=== PATIENT | female | born 1950 | race Caucasian/White ===

== ENCOUNTER 2016-09-12 10:24 | Emergency (ER) | payer OTHER ==
[2016-09-12 10:32] VITALS: BP 169/76; PULSE 111; RESP 18; TEMP 98.8; O2SAT 98
--- NOTE | 2016-09-12 10:44 | PD ---
HPI Chief Complaint: Skin Problem Time Seen by Provider: 10:32 Travel History International Travel<30 days: No Contact w/Intl Traveler<30days: No Traveled to known affect area: No History of Present Illness HPI SEEN AT URGENT CARE SEVERAL DAYS AGO DX WITH CELLULITIS TO RLE, PLACED ON BACTRIM AND PREDNISONE BUT STATES THAT HER PAIN IS STILL ONGOING SO IS HERE FOR FOLLOW UP....PAIN IS CRAMPY, 4/10, WORSE WITH AMBULATION, IMPROVED WITH REST. PFSH Past Medical History Cancer: Yes (BASAL CELL CANCER REMOVED ON LEG) Diminished Hearing: No Social History Alcohol Use: No Tobacco Use: No Substance Use: No Allergies-Medications (Allergen,Severity, Reaction): Coded Allergies: UNOBTAINABLE (Unverified , 09/12/16) Reported Meds & Prescriptions Reported Meds & Active Scripts Active Reported Gentamicin Opth Drops 0.3% Soln 1 Drop EACH EYE Q4HR Artificial Tears (Dextran 70/Hypromellose) 1 Each Droperette 1 Drop EACH EYE BID PRN Alendronate (Alendronate Sodium) 70 Mg Tab 70 Mg PO Q7D Bactrim DS (Sulfamethoxazole-Trimethoprim) 800-160 Mg Tab 1 Tab PO BID Simvastatin 20 Mg Tab 20 Mg PO DAILY Prednisone 50 Mg Tab 50 Mg PO DAILY Review of Systems Except as stated in HPI: all other systems reviewed are Neg Musculoskeletal: Positive: Pain (RLE) Physical Exam Narrative GENERAL: SKIN: Warm and dry. HEAD: Atraumatic. Normocephalic. EYES: Pupils equal and round. No scleral icterus. No injection or drainage. ENT: No nasal bleeding or discharge. Mucous membranes pink and moist. NECK: Trachea midline. No JVD. CARDIOVASCULAR: Regular rate and rhythm. RESPIRATORY: No accessory muscle use. Clear to auscultation. Breath sounds equal bilaterally. GASTROINTESTINAL: Abdomen soft, non-tender, nondistended. Hepatic and splenic margins not palpable. MUSCULOSKELETAL: Extremities without clubbing, cyanosis, or edema. No obvious deformities. RT CALF PAIN (POS CARINE'S ON RT CALF), NO EDEMA, NO ERYTHEMA NOTED EITHER LE NEUROLOGICAL: Awake and alert. No obvious cranial nerve deficits. Motor grossly within normal limits. Five out of 5 muscle strength in the arms and legs. Normal speech. PSYCHIATRIC: Appropriate mood and affect; insight and judgment normal. Data Data Last Documented VS Vital Signs Date Time Temp Pulse Resp B/P Pulse Ox O2 Delivery O2 Flow Rate FiO2 09/12/16 10:32 98.8 111 18 169/76 98 Orders Us Leg Venous Doppler Bilat (09/12/16 ) Orphenadrine Inj (Norflex Inj) (09/12/16 12:00) Ketorolac Inj (Toradol Inj) (09/12/16 12:00) MDM Medical Decision Making Medical Screen Exam Complete: Yes Emergency Medical Condition: Yes Medical Record Reviewed: Yes Differential Diagnosis DVT V MCINTYRE'S CYST V RESOLVING CELLULITIS Narrative Course PATIENT SEEN AND ULTRASOUND JAMILA NEG FOR DVT, WILL D/C Diagnosis Primary Impression: LEG CRAMP Patient Instructions: General Instructions, Leg Cramps (ED) Scripts Tramadol (Ultram)50 Mg Tab50 Mg PO Q4H PRN (PAIN) #28 TAB Prov:Gianluca Ibrahim MD 09/12/16 Disposition: 01 DISCHARGE HOME Condition: Stable Gianluca Ibrahim MD Sep 12, 2016 10:44
[2016-09-12] MEDS ORDERED: SIMV20TA PO (11:19)
[2016-09-12] MEDS ORDERED: PRED50 PO (11:19)
[2016-09-12] MEDS ORDERED: BACT800T5 PO (11:21)
[2016-09-12] MEDS ORDERED: ALEN1TAB48 PO (11:21)
[2016-09-12] MEDS ORDERED: ARTISOL3 EACH EYE (11:22)
[2016-09-12] MEDS ORDERED: GENT0.3S2 EACH EYE (11:24)
--- NOTE | 2016-09-12 11:56 | RADRPT ---
EXAM DATE/TIME: 09/12/2016 11:05 [facility] COMPARISON: No previous studies available for comparison. INDICATIONS : Bilateral leg pain. MEDICAL HISTORY : Cellulitis. Blindness. SURGICAL HISTORY : Skin cancer removed. ENCOUNTER: Initial ACUITY: 2 weeks PAIN SCORE: 3/10 LOCATION: Bilateral legs. TECHNIQUE: Venous ultrasound of the left and right leg was performed from the inguinal ligament to the proximal calf. Real-time, color Doppler and spectral tracing, compression and augmentation techniques were us ed. FINDINGS: RIGHT LEG: There is normal compressibility of the deep venous system from the inguinal region to the proximal ca lf. No echogenic clot is seen in the lumen of the common femoral, femoral, popliteal, and posterior tibial veins. There is a normal response of the venous system to proximal and distal augmentation an d respiration. LEFT LEG: There is normal compressibility of the deep venous system from the inguinal region to the proximal ca lf. No echogenic clot is seen in the lumen of the common femoral, femoral, popliteal, and posterior tibial veins. There is a normal response of the venous system to proximal and distal augmentation an d respiration. CONCLUSION: Normal examination. Matthias Andre MD on September 12, 2016 at 11:53 Board Certified Radiologist. This report was verified electronically.
[2016-09-12] MEDS ORDERED: KETOROLAC TROMETHAMINE 60 MG/2 ML (IM) VIAL IM ONE (12:00)
[2016-09-12] MEDS ORDERED: ORPHENADRINE INJ 60 MG/2 ML AMP IM ONE (12:00)
[2016-09-12] MEDS ORDERED: ULTR50TA5 PO (12:06)
[2016-09-12 13:00] VITALS: BP 157/89; PULSE 80; RESP 18; O2SAT 98
== END 2016-09-12 13:28 | disposition home or self-care (01) ==
LOC: NEPC 10:24
DX: R25.2 Cramp and spasm (principal)
CPT/HCPCS: 93970; 96372; 99285; J1885; J2360